=== PATIENT | male | born 1955 | race Caucasian/White ===

== ENCOUNTER 2018-05-23 06:41 | Day surgery (SDC) | payer BC ==
[2018-05-23] MEDS ORDERED: Lidocaine 1%/Sod Bicarbonate in NS 8.4% 1 ML Syringe IDERM PRN (07:00)
[2018-05-23] MEDS ORDERED: Lactated Ringers 1,000 ML IV SCH (07:00)
[2018-05-23] MEDS ORDERED: Sodium Chloride 0.9% 10 ML Syringe FLUSH PRN (07:00)
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
[2018-05-23] MEDS ORDERED: Albuterol 0.083% 2.5 MG/3 ML Neb Soln NEB ONE (07:35)
[2018-05-23] MEDS ORDERED: Lidocaine 1% 4 ML ONE (07:37)
[2018-05-23] MEDS ORDERED: Propofol 200 MG/20 ML SDV ONE ×2 (07:38→08:20)
[2018-05-23] MEDS ORDERED: Midazolam 1 MG/ML 2 ML SDV ONE (07:38)
[2018-05-23] MEDS ORDERED: fentaNYL 100 MCG/2 ML SDV ONE (07:38)
[2018-05-23] MEDS ORDERED: Ketamine 500 mg/10 ML MDV ONE (08:18)
--- NOTE | 2018-05-23 09:11 | PCM.OPNOTE ---
- General Post-Op/Procedure Note Date of Surgery/Procedure: 05/23/18 Operative Procedure(s): EGD with biopsy and colonoscopy with polypectomy Findings: Warner's esophagus with bilious fluid in the stomach and bilious esophageal reflux Polyp in rectum and transverse colon Pre Op Diagnosis: Warner's esophagus and history of colon polyps Post-Op Diagnosis: same Anesthesia Technique: SASHA Primary Surgeon: Jess Howard Secondary Surgeon: Megan Eric Pathology: 1. Warner's esophagus biopsies 2. Gastric antrum mucosa for H. pylori 3. Lesser curvature mucosa 4. Transverse colon polyp 5. Rectal polyp Output, Urine Amount: 0 EBL in mLs: 0 Drain/Tube Comments:: none Complications: none apparent Condition: Good
--- NOTE | 2018-05-23 09:12 | PCM48HPAN ---
Post Anesthesia Note - EVALUATION WITHIN 48HRS OF ANESTHETIC Vital Signs in Normal Range: Yes Patient Participated in Evaluation: Yes Respiratory Function Stable: Yes Airway Patent: Yes Cardiovascular Function Stable: Yes Hydration Status Stable: Yes Pain Control Satisfactory: Yes Nausea and Vomiting Control Satisfactory: Yes Mental Status Recovered: Yes (no complaints) Pulse Rate: 77 SaO2: 94 Resp Rate: 20 Temperature: 98.1 F Blood Pressure: 116/65
[2018-05-23 09:13] VITALS: BP 116/65
--- NOTE | 2018-05-23 11:34 | PCM.PRNOTE ---
- Free Text/Narrative Note: Operative Report Date of Procedure: May 23, 2018 Pre Op Diagnosis: Warner's esophagus and history of colon polyps Post-Op Diagnosis: . Same Operative Procedures: 1. EGD with biopsy 2. Colonoscopy to the cecum with biopsy Primary Surgeon: Jess Howard MD Anesthesia Provider: Megan Eric Anesthesia Technique: MAC IV Fluid Replacement, Intraop: 900 cc crystalloid Output, Urine Amount: 0 cc EBL in mLs: 1-2 Findings: Warner's esophagus with bilious fluid in the stomach and bilious esophageal reflux; Polyp in rectum and transverse colon Specimens: 1. Warner's esophagus biopsies 2. Gastric antrum mucosa for H. pylori 3. Lesser curvature mucosa 4. Transverse colon polyp 5. Rectal polyp Drain/Tubes: None Indication: The patient is a 62-year-old gentleman who presented to the clinic with Warner' s esophagus and history of colon polyps. The patient was consented for a surveillance EGD with biopsy and colonoscopy. Risks of bleeding, and perforation were discussed, and the patient agreed to the risks and wished to proceed. Description of the procedure: The patient was taken back to the endoscopy suite, and placed in the left lateral decubitus position. He was placed in his CPAP machine with additional oxygen, and a bite block was placed. The patient was sedated with MAC anesthesia. The Olympus video endoscope was inserted into the oropharynx and guided under direct vision into the esophagus. A this point we did not note a hiatal hernia. The Z-line and gastroesophageal junction were located at about 44 cm. Barretts esophagus changes were noted for a short segment, approximately 1-2 cm. Circumferential biopsies were taken. We proceeded to insert the scope further into the stomach, and duodenum. The gastric antrum was inspected and cold biopsy forceps were used to take tissue samples for H. pylori. The duodenal bulb and second portion of the duodenum were unremarkable. The scope was withdrawn to the stomach and retroflexed. There was increased bilious fluid, the upper gastrointestinal tract that was present in the stomach and refluxing into the esophagus. There were polypoid appearing changes to the mucosa, this was biopsied. No erosions or ulcers were noted. The endoscope was then withdrawn. Next, anorectal examination was performed. No lesions, masses or hemorrhoids were noted externally or on palpation. The scope was placed into the rectum and advanced to cecum. We were able to identify the cecum and the ileocecal valve, however, the patient's anatomy would not allow placement of the scope into the cecum and residual stool obscured view of the appendiceal orifice and base of the cecum. There was mild tortuosity of the colon. The ileocecal valve was well visualized.. At this point, the scope was slowly withdrawn, paying attention to the mucosa. The patient had suboptimal bowel prep, 65-75 % of the mucosa was visible. A transverse colon polyp was noted. This was removed using cold biopsy forceps. We also found flat 1-3 mm polyps in the rectum, this was also biopsied using cold biopsy forceps. In the rectum, scope was retroflexed and some hemorrhoidal tissue was noted. The scope was placed back in the lumen and excess air was aspirated. The scope was removed. The patient tolerated the procedure very well. We will await pathology, which will dictate the timing of future surveillance. Complications: None apparent Condition: The patient was transported to PACU in stable condition. Jess Howard MD General Surgery
== END 2018-05-23 10:07 | disposition home or self-care (01) ==
LOC: JD.SDS 06:41
PROVIDERS: ATTEND Surgery
DX: Z12.11 Encounter for screening for malignant neoplasm of colon (principal); K22.70 Barrett's esophagus without dysplasia; D12.3 Benign neoplasm of transverse colon; K62.1 Rectal polyp; K29.50 Unspecified chronic gastritis without bleeding; G47.30 Sleep apnea, unspecified; I10 Essential (primary) hypertension; M19.90 Unspecified osteoarthritis, unspecified site; F17.210 Nicotine dependence, cigarettes, uncomplicated; E66.01 Morbid (severe) obesity due to excess calories; Z68.41 Body mass index [BMI] 40.0-44.9, adult; Z79.82 Long term (current) use of aspirin; Z79.899 Other long term (current) drug therapy; Z86.010 Personal history of colon polyps
CPT/HCPCS: 43239; 45380; 94640; J2250; J2704; J3010; J7120; 00813; J2001

== ENCOUNTER 2020-09-14 08:35 | Day surgery (SDC) | payer BC ==
[~2020-09-14 08:35] MED LIST: Lactated Ringers 1,000 ML IV SCH; Lidocaine 1%/Sod Bicarbonate in NS 8.4% 1 ML Syringe IDERM PRN; Sodium Chloride 0.9% 10 ML Syringe FLUSH PRN
[2020-09-14] MEDS ORDERED: Albuterol 0.083% 2.5 MG/3 ML Neb Soln NEB SCH (09:05)
[2020-09-14] MEDS ORDERED: Propofol 200 MG/20 ML SDV ONE ×2 (09:13→10:01)
[2020-09-14] MEDS ORDERED: Lidocaine 1% 4 ML ONE (09:14)
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
[2020-09-14] MEDS ORDERED: Ketorolac 15 MG/ML SDV ONE ×2 (09:20→09:21)
[2020-09-14] MEDS ORDERED: Midazolam Oral Soln 10 MG/5 ML Oral Syringe ONE (09:50)
[2020-09-14] MEDS ORDERED: Midazolam 1 MG/ML 2 ML SDV ONE (10:16)
--- NOTE | 2020-09-14 10:17 | PCM.OPNOTE ---
- General Post-Op/Procedure Note Date of Surgery/Procedure: 09/14/20 Operative Procedure(s): EGD Findings: 1. Hiatal hernia 2. [place] colored mucosa in the distal esophagus consistent with Warner's esophagus 3. Irregular gastric mucosa 4. Gastric polyp in the antrum 5. Gastritis Pre Op Diagnosis: History of Warner's esophagus changes Post-Op Diagnosis: same Anesthesia Technique: MAC Primary Surgeon: Jess Howard Anesthesia Provider: Jeanette Srinivasan Pathology: 1. Gastric antrum biposies 2. Gastric polyp 3. Greater curvature biopsies 4. GE junction biopsies (for Warner's esophagus) Fluid Replacement, Intraop: 800 Output, Urine Amount: 0 EBL in mLs: 0 Complications: none apparent Condition: Good
--- NOTE | 2020-09-14 10:21 | PCM.PRNOTE ---
- Free Text/Narrative Note: Operative Report Date of procedure: September 14, 2020 Preoperative diagnosis: History of Barretts esophagus changes Postoperative diagnosis: same Surgeon: Jess Howard M.D. Procedure: EGD Anesthesia: MAC Nursing Attendant: Jeanette Srinivasan CRNA IV fluids: 800mL Estimated blood loss: 0 mL Findings: 1. Hiatal hernia 2. [place] colored mucosa in the distal esophagus consistent with Warner's esophagus 3. Irregular gastric mucosa 4. Gastric polyp in the antrum 5. Gastritis Specimens: 1. Gastric antrum biopsies 2. Gastric polyp 3. Greater curvature biopsies 4. GE junction biopsies (for Warner's esophagus) Indication: The patient is a 65-year-old who presented with history of Warner's esophagus changes. The patient was consented for an EGD. Risk of bleeding and perforation were discussed. The patient's consent was obtained Description of the procedure: The patient was taken to the endoscopy suite and placed on hemodynamic monitoring. The nurse microfiche duplicator induced MAC anesthesia. A bite block was placed. The patient was positioned in the left lateral decubitus position. A timeout was performed. The endoscope was gently placed into the mouth to the back of the pharynx and introduced into the esophagus. The scope was gently advanced under direct visualization down to the level of the lower esophageal sphincter. The stomach was then entered. The rugal folds were noted, but the mucosa had a cobblestone appearance with polypoidosis. The scope was advanced into the antrum. We noted erythema consistent with gastritis. The pylorus was then entered and the first and second portion of the duodenum was inspected. There were no ulcerations in the duodenum. The scope was withdrawn into the antrum and biopsies were taken with a cold biopsy forceps. A 3mm polyp was noted in the antrum and biopsies were taken with a cold biopsy forceps. The scope was then retroflexed in the c ardia and fundus were investigated. There is evidence of a hiatal hernia. No other abnormalities were noted. The scope was then withdrawn while inspecting the esophagus. There were 3 tongues of salmon-colored mucosa extending into the distal esophagus 1-2cm. Biopsies were taken in four quadrants with a cold biopsy forceps. The procedure was terminated. the patient tolerated the procedure well without any evidence of complications. Jess Howard MD General Surgery
--- NOTE | 2020-09-14 10:28 | PCM48HPAN ---
Post Anesthesia Note - EVALUATION WITHIN 48HRS OF ANESTHETIC Vital Signs in Normal Range: Yes Patient Participated in Evaluation: Yes Respiratory Function Stable: Yes Airway Patent: Yes Cardiovascular Function Stable: Yes Hydration Status Stable: Yes Pain Control Satisfactory: Yes Nausea and Vomiting Control Satisfactory: Yes Mental Status Recovered: Yes Vital Signs: Last Vital Signs 1020 111/73 95 2 L 86' 18 98.3 Temp 36.2 C 09/14/20 08:35 Pulse 77 09/14/20 08:35 Resp 20 09/14/20 08:35 BP 148/77 H 09/14/20 08:35 Pulse Ox 94 L 09/14/20 09:05
[2020-09-14 10:56] VITALS: BP 125/76; PULSE 79
== END 2020-09-14 11:07 | disposition home or self-care (01) ==
LOC: JD.SDS 08:35
PROVIDERS: ATTEND Surgery
DX: K29.50 Unspecified chronic gastritis without bleeding (principal); K20.90 Esophagitis, unspecified without bleeding; K22.70 Barrett's esophagus without dysplasia; K44.9 Diaphragmatic hernia without obstruction or gangrene; K31.89 Other diseases of stomach and duodenum; K31.7 Polyp of stomach and duodenum; F17.210 Nicotine dependence, cigarettes, uncomplicated; I10 Essential (primary) hypertension; E66.01 Morbid (severe) obesity due to excess calories; G47.30 Sleep apnea, unspecified; Z98.890 Other specified postprocedural states; Z79.82 Long term (current) use of aspirin; Z79.899 Other long term (current) drug therapy; Z68.42 Body mass index [BMI] 45.0-49.9, adult
CPT/HCPCS: 43239; 94640; J1885; J2001; J2250; J2704; J7120; 00731; A9270-GY

== ENCOUNTER 2021-11-24 17:37 | Inpatient (IN) | payer BC ==
[2021-11-24] MEDS ORDERED: Sodium Chloride 0.9% 1,000 ML IV ONE (18:36)
[2021-11-24] MEDS ORDERED: Piperacillin/Tazobactam 4.5 GM in Sodium Chloride 0.9% 100 ML IV ONE (18:57)
[2021-11-24] MEDS ORDERED: Iopamidol 755 MG/ML 50 ML Bottle IVPUSH ONE (20:31)
[2021-11-24] MEDS ORDERED: Sodium Chloride 0.9% 10 ML SDV FLUSH ONE (20:31)
[2021-11-24] MEDS ORDERED: Iopamidol 755 Mg/ML 100 ML Bottle IVPUSH ONE (20:31)
[2021-11-24] MEDS ORDERED: Sodium Chloride 0.9% 100 ML IV SCH (20:45)
[2021-11-24] MEDS: Sodium Chloride 0.9% 1,000 ML IV SCH (23:40)
[2021-11-25] MEDS ORDERED: Acetaminophen 325 MG Tab PO PRN (06:55)
[2021-11-25] MEDS ORDERED: Ondansetron 4 MG Tab.DIS PO PRN (06:55)
[2021-11-25] MEDS ORDERED: Docusate Sodium 100 MG Cap PO PRN (06:55)
[2021-11-25 08:31] LABS: HEMOGLOBIN A1C 5.9 %
[2021-11-25] MEDS ORDERED: Vancomycin 1.5 GM in Sodium Chloride 0.9% 500 ML IV SCH (09:00)
[2021-11-25] MEDS: oxyCODONE 5 MG Tab PO PRN (09:01)
[2021-11-25] MEDS: Lisinopril 20 MG Tab PO SCH (09:02)
[2021-11-25] MEDS: Rivaroxaban 10 MG Tab PO SCH (09:04)
[2021-11-25] MEDS: Hydrochlorothiazide 25 MG Tab PO SCH (09:05)
[2021-11-25] MEDS: Vancomycin 1 GM, Vancomycin 500 MG in Sodium Chloride 0.9% 500 ML IV SCH ×2 (09:06→20:39)
[2021-11-25] MEDS: Nicotine 14 MG/24 Hr Patch TRDERM SCH (09:55)
[2021-11-25] MEDS: Pantoprazole 40 MG Tab.CR PO SCH (12:36)
[2021-11-25] MEDS: Sodium Chloride 0.9% 1,000 ML IV SCH (14:27)
[2021-11-25] MEDS: Albuterol/Ipratropium 3.0-0.5 MG/3 ML Neb Soln NEB PRN (14:34)
[2021-11-26] MEDS: oxyCODONE 5 MG Tab PO PRN ×4 (03:09→18:53)
[2021-11-26] MEDS: Nicotine 14 MG/24 Hr Patch TRDERM SCH (08:03)
[2021-11-26] MEDS: Lisinopril 20 MG Tab PO SCH (08:04)
[2021-11-26] MEDS: Rivaroxaban 10 MG Tab PO SCH (08:04)
[2021-11-26] MEDS: Hydrochlorothiazide 25 MG Tab PO SCH (08:04)
[2021-11-26] MEDS: Pantoprazole 40 MG Tab.CR PO SCH (08:05)
[2021-11-26] MEDS: Vancomycin 1 GM, Vancomycin 500 MG in Sodium Chloride 0.9% 500 ML IV SCH ×2 (08:07→20:46)
[2021-11-26] MEDS ORDERED: Diltiazem 100 MG in Sodium Chloride 0.9% 100 ML IV SCH (10:45)
[2021-11-26] MEDS: Albuterol/Ipratropium 3.0-0.5 MG/3 ML Neb Soln NEB PRN ×2 (10:53→20:22)
[2021-11-26] MEDS ORDERED: Sodium Chloride 0.9% 500 ML ONE (11:24)
[2021-11-26] MEDS ORDERED: Diltiazem 50 MG/10 ML SDV IVPUSH ONE (12:26)
[2021-11-26] MEDS ORDERED: Sodium Chloride 0.9% 500 ML IV ONE (13:05)
[2021-11-26] MEDS: Clindamycin Phosphate in D5W 900 MG in Premix Bag 1 BAG IV SCH ×2 (19:50)
[2021-11-26] MEDS ORDERED: chlordiazePOXIDE 25 MG Cap PO PRN (20:21)
[2021-11-27] MEDS: oxyCODONE 5 MG Tab PO PRN (02:04)
[2021-11-27] MEDS: Clindamycin Phosphate in D5W 900 MG in Premix Bag 1 BAG IV SCH ×4 (02:07→11:57)
[2021-11-27] MEDS: chlordiazePOXIDE 25 MG Cap PO SCH ×2 (04:12→13:09)
[2021-11-27] MEDS: Pantoprazole 40 MG Tab.CR PO SCH (08:49)
[2021-11-27] MEDS: Rivaroxaban 10 MG Tab PO SCH (08:49)
[2021-11-27] MEDS: Hydrochlorothiazide 25 MG Tab PO SCH (08:49)
[2021-11-27] MEDS: Lisinopril 20 MG Tab PO SCH ×2 (08:49→09:36)
[2021-11-27] MEDS: Nicotine 14 MG/24 Hr Patch TRDERM SCH (08:50)
[2021-11-27] MEDS ORDERED: Diltiazem 180 MG Cap.CD PO SCH (09:30)
[2021-11-27] MEDS ORDERED: Furosemide 20 MG/2 ML VIAL IVPUSH ONE (11:15)
[2021-11-27] MEDS ORDERED: Linezolid 600 MG in Premix Bag 1 BAG IV SCH (12:00)
[2021-11-27 16:09] VITALS: BP 95/59; PULSE 93
== END 2021-11-27 16:50 | DRG 383 ==
LOC: JD.ED 17:37 → JD.MS 21:03 → OBSVTOIN 23:12 → JD.ICU 11-25 08:41 → JD.MS 11-26 10:51
PROVIDERS: ADMIT Internal Medicine; ATTEND Internal Medicine
PROC: 03HY32Z Insertion of Monitoring Device into Upper Artery, Percutaneous Approach (ICD-10-PCS; principal; 2021-11-26)
PROC: 4A133B1 Monitoring of Arterial Pressure, Peripheral, Percutaneous Approach (ICD-10-PCS; 2021-11-26)
PROC: 4A133J1 Monitoring of Arterial Pulse, Peripheral, Percutaneous Approach (ICD-10-PCS; 2021-11-26)
DX: L03.116 Cellulitis of left lower limb (principal); J96.01 Acute respiratory failure with hypoxia; J44.9 Chronic obstructive pulmonary disease, unspecified; E66.2 Morbid (severe) obesity with alveolar hypoventilation; F17.210 Nicotine dependence, cigarettes, uncomplicated; I48.91 Unspecified atrial fibrillation; I95.9 Hypotension, unspecified; N17.9 Acute kidney failure, unspecified; H54.7 Unspecified visual loss; I10 Essential (primary) hypertension; K21.9 Gastro-esophageal reflux disease without esophagitis; K42.9 Umbilical hernia without obstruction or gangrene; M19.90 Unspecified osteoarthritis, unspecified site; E66.9 Obesity, unspecified; Z98.890 Other specified postprocedural states; Z68.42 Body mass index [BMI] 45.0-49.9, adult; Z79.01 Long term (current) use of anticoagulants; Z79.899 Other long term (current) drug therapy; Z86.010 Personal history of colon polyps
CPT/HCPCS: 36415; 36600; 36620; 51798; 71045; 71045-26; 71275; 71275-26; 73590-26-LT; 73590-LT; 76937; 80053; 80202; 82803; 83036; 83605; 83735; 83880; 84145; 84484; 85025; 86140; 87040; 93005; 93010; 94640; 94660; 96365; 97162-GP; 97530-GP; 99285; 99285-25; A9270-GY; J1940; J2020; J2543; J3370; J3490; J7030; J7040; J7620-GY; Q9967

== ENCOUNTER 2024-02-13 11:48 | Inpatient (IN) | payer MEDICARE, BC ==
[2024-02-13 12:23] LABS: HEMATOCRIT 41.5 % (42.0-52.0); HEMOGLOBIN 13.7 gm/dl (14.0-18.0); MEAN CORPUSCULAR VOLUME 87.7 fl (83.0-99.0); MEAN PLATELET VOLUME 9.7 fl (9.4-12.4); PLATELET COUNT,PLT 174 K/mm3 (150-400); RED BLOOD CELL COUNT 4.73 M/mm3 (4.52-5.90)
[2024-02-13] MEDS: Acetaminophen 325 MG Tab PO ONE (12:37)
[2024-02-13] MEDS: Sodium Chloride 0.9% 10 ML Syringe FLUSH PRN (12:37)
[2024-02-13 12:44] LABS: INR 1.08; PROTHROMBIN TIME 11.5 SECONDS (9.7-12.0)
[2024-02-13 12:45] LABS: PTT,PARTIAL THROMBOPLSTIN TIME 28.5 SECONDS (21.7-31.4)
[2024-02-13 12:49] LABS: LACTIC ACID 1.5 mmol/L (0.4-2.0)
[2024-02-13 12:54] LABS: ALBUMIN 3.5 g/dl (3.4-5.0); BILIRUBIN TOTAL 1.1 mg/dL (0.2-1.0); BUN/CREATININE RATIO 19.2 (14-18); CALCIUM 8.7 mg/dL (8.5-10.1); EST CRCL DRUG DOSING (CG) 57.71 mL/min; MAGNESIUM 1.2 mg/dL (1.8-2.4); PROTEIN TOTAL,TP 7.1 g/dl (6.4-8.2)
[2024-02-13 13:01] LABS: CREATININE 1.3 mg/dL (0.7-1.3)
[2024-02-13 13:05] LABS: CORONAVIRUS COVID-19 NAA NEGATIVE (NEGATIVE); INFLUENZA A NAA NEGATIVE (NEGATIVE); RESPIRATORY SYNCYTIAL VIR NAA NEGATIVE (NEGATIVE)
[2024-02-13 13:09] LABS: APPEARANCE,URINE CLOUDY (Clear); BILIRUBIN,URINE NEGATIVE (Negative); COLOR,URINE DARK YELLOW (Yellow); GLUCOSE,URINE NEGATIVE (Negative); KETONES,URINE NEGATIVE (Negative); LEUKOCYTE ESTERASE,URINE 3+ (Negative); NITRITE,URINE POSITIVE (Negative); OCCULT BLOOD,URINE 2+ (Negative); PH,URINE 7.5 (5.0-8.0); PROTEIN,URINE 2+ (Negative)
[2024-02-13 13:12] LABS: BAND PERCENT MAN 4 % (0-10); BASOPHILS PERCENT MAN 0 (0.2-1.2); EOSINOPHILS PERCENT MAN 0 % (0.8-7.0); LYMPHOCYTES % ATYPICAL MANUAL 0 %; LYMPHOCYTES PERCENT MAN 2 % (20-40); METAMYELOCYTE PERCENT MAN 1; MONOCYTES PERCENT MAN 4 % (2-10); PLATELET COUNT ESTIMATE ADEQUATE
[2024-02-13 13:22] LABS: BACTERIA,URINE MANY /hpf (FEW); EPITHELIAL CELLS,URINE NOT SEEN /hpf (0-5); WBC,URINE TOO NUMEROUS TO CNT /hpf (0-5)
[2024-02-13 13:23] LABS: MUCUS,URINE FEW /hpf (FEW)
[2024-02-13] MEDS: Piperacillin/Tazobactam 4.5 GM in Sodium Chloride 0.9% 100 ML IV ONE (13:23)
[2024-02-13] MEDS: Sodium Chloride 0.9% 1,000 ML IV ONE ×2 (13:23→14:17)
[2024-02-13] MEDS: LORazepam 2 MG/ML SDV IVPUSH ONE (13:23)
[2024-02-13] MEDS ORDERED: Albuterol/Ipratropium 3.0-0.5 MG/3 ML Neb Soln NEB PRN ×2 (15:05→15:44)
[2024-02-13] MEDS ORDERED: Docusate Sodium 100 MG Cap PO PRN (15:05)
[2024-02-13] MEDS ORDERED: Ondansetron 4 MG/2 ML SDV IV PRN (15:05)
[2024-02-13] MEDS ORDERED: Polyethylene Glycol 3350 Powder 17 GM Packet PO PRN (15:05)
[2024-02-13] MEDS ORDERED: LORazepam 0.5 MG Tab PO PRN (15:08)
[2024-02-13] MEDS: Magnesium Sulfate/Water 4 GM in Premix Bag 1 BAG IV ONE (16:15)
[2024-02-13] MEDS ORDERED: Rivaroxaban 10 MG Tab PO SCH (18:00)
[2024-02-13] MEDS: Magnesium Sulfate/Water 50 ML ONE (18:14)
[2024-02-13] MEDS: Sodium Chloride 0.9% 500 ML ONE (18:55)
[2024-02-13] MEDS: Rivaroxaban 10 MG Tab PO SCH (20:41)
[2024-02-13] MEDS: Piperacillin/Tazobactam 4.5 GM in Sodium Chloride 0.9% 100 ML IV SCH (21:56)
[2024-02-13] MEDS: Acetaminophen/oxyCODONE 325-5 MG Tab PO PRN (23:10)
[2024-02-14 04:46] LABS: BASOPHILS ABSOLUTE AUTO 0.1 K/mm3 (0.0-0.2); BASOPHILS PERCENT AUTO 0.2 % (0.0-1.0); HEMATOCRIT 38.1 % (42.0-52.0); HEMOGLOBIN 12.4 gm/dl (14.0-18.0); IMMATURE GRAN ABSOLUTE AUTO 0.25 K/mm3 (0.00-0.05); IMMATURE GRAN PERCENT AUTO 1.2 % (0.0-0.4); LYMPHOCYTES ABSOLUTE AUTO 0.6 K/mm3 (1.0-4.8); MEAN CORPUSCULAR HEMOGLOBIN 28.6 pg (28.0-32.0); MEAN CORPUSCULAR HGB CONC 32.5 g/dl (32.0-36.0); MEAN PLATELET VOLUME 9.9 fl (9.4-12.4); MONOCYTES ABSOLUTE AUTO 1.7 K/mm3 (0.0-0.8); MONOCYTES PERCENT AUTO 7.8 % (0.0-8.0); NEUTROPHILS ABSOLUTE AUTO 18.4 K/mm3 (1.8-7.7); NEUTROPHILS PERCENT AUTO 87.8 % (41.0-71.0); PLATELET COUNT,PLT 140 K/mm3 (150-400); RED BLOOD CELL COUNT 4.33 M/mm3 (4.52-5.90); WHITE BLOOD CELL COUNT,WBC 21.03 K/mm3 (3.9-11.3)
[2024-02-14] MEDS: Acetaminophen 325 MG Tab PO PRN (05:01)
[2024-02-14] MEDS: Pantoprazole 40 MG Tab.CR PO SCH (05:01)
[2024-02-14 05:28] LABS: A/G RATIO 0.7 (1-2); ALBUMIN 2.9 g/dl (3.4-5.0); ANION GAP 11.9 (5-15); BILIRUBIN TOTAL 0.9 mg/dL (0.2-1.0); BUN/CREATININE RATIO 18.3 (14-18); CALCIUM 8.3 mg/dL (8.5-10.1); CREATININE 1.2 mg/dL (0.7-1.3); EST CRCL DRUG DOSING (CG) 62.52 mL/min; MAGNESIUM 1.8 mg/dL (1.8-2.4); POTASSIUM,K 3.9 mEq/L (3.5-5.1); PROTEIN TOTAL,TP 6.8 g/dl (6.4-8.2)
[2024-02-14 06:59] LABS: SLIDE REVIEW ABNORMAL SMEAR
[2024-02-14] MEDS: Metoprolol Succinate 25 MG Tab.ER PO SCH (09:05)
[2024-02-14] MEDS: Albuterol/Ipratropium 3.0-0.5 MG/3 ML Neb Soln NEB SCH ×2 (09:26→13:57)
[2024-02-14] MEDS: predniSONE 20 MG Tab PO ONE (09:59)
[2024-02-14] MEDS: Acetaminophen/Butalbital/Caffeine 325-50-40 MG Tab PO ONE (09:59)
[2024-02-14] MEDS: Magnesium Sulfate/Water 2 GM in Premix Bag 1 BAG IV ONE (10:00)
[2024-02-15] MEDS: LORazepam 2 MG/ML SDV IM ONE (00:25)
[2024-02-15] MEDS: OLANZapine 10 MG Vial IM ONE (00:25)
[2024-02-15] MEDS: LORazepam 2 MG/ML SDV IM STA (01:11)
[2024-02-15] MEDS: diphenhydrAMINE 50 MG/ML SDV IM STA (01:12)
[2024-02-15] MEDS: LORazepam 2 MG/ML SDV IVPUSH ONE (01:14)
[2024-02-15] MEDS: LORazepam 2 MG/ML SDV ONE ×2 (01:14→01:15)
[2024-02-15] MEDS: diphenhydrAMINE 50 MG/ML SDV ONE (01:15)
[2024-02-15] MEDS: Haloperidol Lactate 5 MG/ML SDV ONE (04:02)
[2024-02-15] MEDS: Haloperidol Lactate 5 MG/ML SDV IVPUSH ONE (04:02)
[2024-02-15 04:44] LABS: BASOPHILS PERCENT AUTO 0.2 % (0.0-1.0); EOSINOPHILS PERCENT AUTO 0.1 % (0.0-6.0); HEMATOCRIT 37.8 % (42.0-52.0); HEMOGLOBIN 12.5 gm/dl (14.0-18.0); IMMATURE GRAN ABSOLUTE AUTO 0.16 K/mm3 (0.00-0.05); IMMATURE GRAN PERCENT AUTO 0.9 % (0.0-0.4); LYMPHOCYTES ABSOLUTE AUTO 0.8 K/mm3 (1.0-4.8); LYMPHOCYTES PERCENT AUTO 4.7 % (24.0-44.0); MEAN CORPUSCULAR HEMOGLOBIN 29.4 pg (28.0-32.0); MEAN CORPUSCULAR HGB CONC 33.1 g/dl (32.0-36.0); MEAN CORPUSCULAR VOLUME 88.9 fl (83.0-99.0); MEAN PLATELET VOLUME 9.9 fl (9.4-12.4); MONOCYTES ABSOLUTE AUTO 1.2 K/mm3 (0.0-0.8); MONOCYTES PERCENT AUTO 6.7 % (0.0-8.0); NEUTROPHILS PERCENT AUTO 87.4 % (41.0-71.0); PLATELET COUNT,PLT 149 K/mm3 (150-400); RED BLOOD CELL COUNT 4.25 M/mm3 (4.52-5.90); WHITE BLOOD CELL COUNT,WBC 17.19 K/mm3 (3.9-11.3)
[2024-02-15 05:06] LABS: A/G RATIO 0.6 (1-2); ALBUMIN 2.7 g/dl (3.4-5.0); ANION GAP 9.9 (5-15); BILIRUBIN TOTAL 0.4 mg/dL (0.2-1.0); BUN/CREATININE RATIO 17.7 (14-18); C-REACTIVE PROTEIN 21.14 mg/dL (<0.30); CALCIUM 8.6 mg/dL (8.5-10.1); CREATININE 1.3 mg/dL (0.7-1.3); EST CRCL DRUG DOSING (CG) 57.71 mL/min; POTASSIUM,K 3.9 mEq/L (3.5-5.1); PROTEIN TOTAL,TP 6.9 g/dl (6.4-8.2)
[2024-02-15] MEDS: Bumetanide 1 MG Tab PO SCH (08:02)
[2024-02-15] MEDS: predniSONE 20 MG Tab PO SCH (08:02)
[2024-02-15] MEDS: LORazepam 2 MG/ML SDV IVPUSH PRN (11:49)
[2024-02-15 12:02] LABS: O2 SATURATION ARTERIAL 88.7 % (96.0-97.0); PCO2 ARTERIAL 47.2 mmHg (35.0-45.0)
[2024-02-15 12:03] LABS: BASE EXCESS ARTERIAL -0.3 (-2-2.0); BICARBONATE,ARTERIAL 25.2 meq/L (22.0-26.0)
[2024-02-15] MEDS: Albuterol 0.083% 2.5 MG/3 ML Neb Soln NEB PRN (19:32)
[2024-02-15] MEDS ORDERED: methylPREDNISolone Sodium Succinate 40 MG/1 ML SDV IVPUSH SCH (20:15)
[2024-02-15] MEDS: methylPREDNISolone Sodium Succinate 40 MG/1 ML SDV IVPUSH SCH (21:40)
[2024-02-16 05:30] LABS: BASOPHILS PERCENT AUTO 0.2 % (0.0-1.0); HEMATOCRIT 40.2 % (42.0-52.0); HEMOGLOBIN 12.9 gm/dl (14.0-18.0); IMMATURE GRAN ABSOLUTE AUTO 0.09 K/mm3 (0.00-0.05); LYMPHOCYTES ABSOLUTE AUTO 0.2 K/mm3 (1.0-4.8); LYMPHOCYTES PERCENT AUTO 2.4 % (24.0-44.0); MEAN CORPUSCULAR HEMOGLOBIN 28.4 pg (28.0-32.0); MEAN CORPUSCULAR HGB CONC 32.1 g/dl (32.0-36.0); MEAN CORPUSCULAR VOLUME 88.5 fl (83.0-99.0); MEAN PLATELET VOLUME 9.7 fl (9.4-12.4); MONOCYTES ABSOLUTE AUTO 0.2 K/mm3 (0.0-0.8); MONOCYTES PERCENT AUTO 1.9 % (0.0-8.0); NEUTROPHILS ABSOLUTE AUTO 8.6 K/mm3 (1.8-7.7); NEUTROPHILS PERCENT AUTO 94.5 % (41.0-71.0); PLATELET COUNT,PLT 175 K/mm3 (150-400); RED BLOOD CELL COUNT 4.54 M/mm3 (4.52-5.90); WHITE BLOOD CELL COUNT,WBC 9.05 K/mm3 (3.9-11.3)
[2024-02-16 05:59] LABS: SLIDE REVIEW ABNORMAL SMEAR
[2024-02-16 06:08] LABS: A/G RATIO 0.7 (1-2); ALBUMIN 2.9 g/dl (3.4-5.0); ANION GAP 13.4 (5-15); BILIRUBIN TOTAL 0.3 mg/dL (0.2-1.0); C-REACTIVE PROTEIN 10.14 mg/dL (<0.30); CALCIUM 8.7 mg/dL (8.5-10.1); EST CRCL DRUG DOSING (CG) 75.03 mL/min; MAGNESIUM 1.9 mg/dL (1.8-2.4); POTASSIUM,K 4.4 mEq/L (3.5-5.1); PROTEIN TOTAL,TP 7.2 g/dl (6.4-8.2)
[2024-02-16] MEDS: guaiFENesin 600 MG Tab.ER PO SCH (20:45)
[2024-02-17 05:40] LABS: BASOPHILS PERCENT AUTO 0.3 % (0.0-1.0); HEMATOCRIT 42.6 % (42.0-52.0); HEMOGLOBIN 13.7 gm/dl (14.0-18.0); IMMATURE GRAN ABSOLUTE AUTO 0.26 K/mm3 (0.00-0.05); IMMATURE GRAN PERCENT AUTO 1.9 % (0.0-0.4); LYMPHOCYTES ABSOLUTE AUTO 0.7 K/mm3 (1.0-4.8); MEAN CORPUSCULAR HEMOGLOBIN 28.4 pg (28.0-32.0); MEAN CORPUSCULAR HGB CONC 32.2 g/dl (32.0-36.0); MEAN CORPUSCULAR VOLUME 88.4 fl (83.0-99.0); MEAN PLATELET VOLUME 9.5 fl (9.4-12.4); MONOCYTES ABSOLUTE AUTO 0.8 K/mm3 (0.0-0.8); MONOCYTES PERCENT AUTO 5.5 % (0.0-8.0); NEUTROPHILS ABSOLUTE AUTO 12.2 K/mm3 (1.8-7.7); NEUTROPHILS PERCENT AUTO 87.3 % (41.0-71.0); PLATELET COUNT,PLT 231 K/mm3 (150-400); RED BLOOD CELL COUNT 4.82 M/mm3 (4.52-5.90); WHITE BLOOD CELL COUNT,WBC 13.97 K/mm3 (3.9-11.3)
[2024-02-17 05:51] LABS: A/G RATIO 0.7 (1-2); ANION GAP 13.6 (5-15); BILIRUBIN TOTAL 0.3 mg/dL (0.2-1.0); C-REACTIVE PROTEIN 4.96 mg/dL (<0.30); CALCIUM 8.8 mg/dL (8.5-10.1); CREATININE 1.1 mg/dL (0.7-1.3); EST CRCL DRUG DOSING (CG) 68.21 mL/min; POTASSIUM,K 4.6 mEq/L (3.5-5.1); PROTEIN TOTAL,TP 7.5 g/dl (6.4-8.2)
[2024-02-17] MEDS: Carboxymethylcellulose Sodium 1% Ophth Gel 15 ML Bottle EYEBOTH PRN (12:16)
[2024-02-17] MEDS: methylPREDNISolone Sodium Succinate 40 MG/1 ML SDV IVPUSH SCH (17:12)
[2024-02-18 05:45] LABS: HEMATOCRIT 43.4 % (42.0-52.0); MEAN CORPUSCULAR HEMOGLOBIN 28.4 pg (28.0-32.0); MEAN CORPUSCULAR HGB CONC 32.3 g/dl (32.0-36.0); MEAN PLATELET VOLUME 9.6 fl (9.4-12.4); PLATELET COUNT,PLT 249 K/mm3 (150-400); RED BLOOD CELL COUNT 4.93 M/mm3 (4.52-5.90); WHITE BLOOD CELL COUNT,WBC 13.45 K/mm3 (3.9-11.3)
[2024-02-18 08:01] VITALS: BP 154/77; PULSE 78
== END 2024-02-18 11:20 | disposition home or self-care (01) | DRG 872 ==
LOC: JD.ED 11:48 → JD.ICU 14:54 → JD.MS 02-14 15:21
PROVIDERS: ADMIT Internal Medicine; ATTEND Internal Medicine
PROC: 5A09357 Assistance with Respiratory Ventilation, Less than 24 Consecutive Hours, Continuous Positive Airway Pressure (ICD-10-PCS; principal; 2024-02-13)
PROC: 4A033R1 Measurement of Arterial Saturation, Peripheral, Percutaneous Approach (ICD-10-PCS; 2024-02-13)
PROC: 3E03329 Introduction of Other Anti-infective into Peripheral Vein, Percutaneous Approach (ICD-10-PCS; 2024-02-15)
DX: A41.9 Sepsis, unspecified organism (principal); A41.51 Sepsis due to Escherichia coli [E. coli]; I10 Essential (primary) hypertension; E66.9 Obesity, unspecified; N30.01 Acute cystitis with hematuria; Z68.43 Body mass index [BMI] 50.0-59.9, adult; F05 Delirium due to known physiological condition; E66.01 Morbid (severe) obesity due to excess calories; H54.7 Unspecified visual loss; K21.9 Gastro-esophageal reflux disease without esophagitis; M19.90 Unspecified osteoarthritis, unspecified site; Z96.652 Presence of left artificial knee joint; I12.9 Hypertensive chronic kidney disease with stage 1 through stage 4 chronic kidney disease, or unspecified chronic kidney disease; G47.33 Obstructive sleep apnea (adult) (pediatric); I48.0 Paroxysmal atrial fibrillation; F41.9 Anxiety disorder, unspecified; N18.2 Chronic kidney disease, stage 2 (mild); G89.29 Other chronic pain; E83.42 Hypomagnesemia; R73.03 Prediabetes; K22.719 Barrett's esophagus with dysplasia, unspecified; J44.9 Chronic obstructive pulmonary disease, unspecified; R45.1 Restlessness and agitation; Z79.01 Long term (current) use of anticoagulants; Z79.899 Other long term (current) drug therapy; Z86.010 Personal history of colon polyps; Z87.81 Personal history of (healed) traumatic fracture; Z98.890 Other specified postprocedural states; Z87.891 Personal history of nicotine dependence; Z86.718 Personal history of other venous thrombosis and embolism
CPT/HCPCS: 0241U; 36415; 36600; 71045; 71045-26; 71046; 71046-26; 80053; 81001; 82803; 83605; 83735; 83880; 84484; 85007; 85025; 85027; 85379; 85610; 85730; 86140; 87040; 87077; 87086; 87088; 87186; 93005; 93010; 94640; 94660; 94760; 94761; 96365; 96375; 99223; 99232; 99233; 99239; 99285; 99285-25; A9270-GY; J1200; J1630; J2060; J2543; J2919; J2920; J3475; J3490; J7030; J7512; J7620-GY